=== PATIENT | female | born 1950 | race Caucasian/White ===

== ENCOUNTER → 2016-12-14 | Outpatient (CLI) | payer BC, OTHER ==
[~2016-12-14] VITALS: Ht 157.5 cm; Wt 70.8 kg
[~2016-12-14] MED LIST: ASPIR 8181 MG PO; FISH OIL 1,001000 M2 PO; HYDROCODON-ACE1 EAC5 PO; HYDROCODONE-AP1 EAC6 PO; METFORMIN HCL500 MG PO; NEURONTIN 300300 M1 PO; VALSARTAN-HCTZ1 EAC3 PO; ZOCOR20 MG PO; ZYRTEC10 M4 PO
--- NOTE | ~2016-12-14 | HPC ---
[facility] [address] [place] [address] PAIN MANAGEMENT CONSULTATION Name: CRISPIN ZAMORA Room #: REG [facility].#: [id number] Admission: 12/14/16 Attend Phys: Marcel Collins MD Discharge: Date of : 52 Report #: [id number] THIS REPORT FOR: //name// CC: Pamela Collins DATE OF SERVICE: 12/14/2016 DATE OF SERVICE: 12/14/2016 REASON FOR CONSULTATION: Cervical radiculopathy. HISTORY OF PRESENT ILLNESS: The patient is Reginaldo Zamora's and she is here today for cervical radiculopathy. I have been taking care of her for several years and he requested that she be evaluated in our clinic for her injection. She began experiencing pain in her upper back radiating into her right arm and into the right hand in 09/2017. Initial treatments included 2 prednisone Dosepak with minimal improvement and she was seen twice in physical therapy also without significant improvement. She was given gabapentin for the neuropathic symptoms at bedtime 300 mg and hydrocodone. She received only about 30 tablets, but was taking far more and used up her medication rapidly. The medication was helpful for pain when it was severe. She describes her pain as continuous, steady, constant, aching, crushing, pain intensity is a 9/10. It is constant and does not go away with simple neck manoeuvres or positioning. MEDICATIONS: Simvastatin, valsartan, hydrochlorothiazide, metformin, Zyrtec. ALLERGIES: PENICILLIN. PAST MEDICAL HISTORY: Positive for hypertension and over the last year and a half, she has been told that she is prediabetic. She is unsure of her A1c numbers. We discussed the role of cortisone including prednisone and triamcinolone use for epidural injections have in the elevation of blood pressure. PAST SURGICAL HISTORY: Diverticulitis in 2006. 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 She denies the use of any tobacco or alcohol. She has no history of drug addiction or abuse. There is no family history of drug addiction. [facility] [address] [place] [address] PAIN MANAGEMENT CONSULTATION Name: CRISPIN ZAMORA Room #: REG [facility]#: [id number] Admission: 12/14/16 Attend Phys: Marcel Collins MD Discharge: Date of : 52 Report #: [id number] REVIEW OF SYSTEMS: Completed by the patient: CONSTITUTIONAL: She describes headaches and blurred vision at times. CARDIOVASCULAR: Negative. RESPIRATORY: Negative. GASTROINTESTINAL: Negative. GENITOURINARY: Positive for nocturia. MUSCULOSKELETAL: Positive for numbness, tingling and weakness in the right arm. PSYCHIATRIC: Reported negative. ENDOCRINE: Positive for diabetes. PHYSICAL EXAMINATION: GENERAL: She is a pleasant, 66-year-old, alert and oriented. VITAL SIGNS: Her blood pressure on admission today is 102/76, heart rate 95, respirations 16. BMI is 28.5. HEENT: Normal. Pupils are equal, round, reactive to light. EOMs are intact. NECK: Reveals some restrictions in lateral tilt. Left lateral tilt exacerbates symptoms into the right arm. Neck flexion, extension performed to normal range of motion with only mild reproductions of symptoms of radiculopathy. MUSCULOSKELETAL: Deltoid, biceps, triceps strength are all judged to be equal. 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 Sensation is generally diminished throughout the hand to light touch in a nondermatomal distribution. She has tenderness across the back. Reflexes in lower extremity are brisk, 3+ suggesting some underlying hyperreflexia. This can be a sign of spinal stenosis. MRI scan is reviewed dated 11/24/2016. There is generalized degenerative facet arthropathy at multiple levels consistent with age. There is what is described as mild central canal stenosis at C5-C6 with severe bilateral neural foraminal stenosis. The greatest degree of neural foraminal stenosis is there as well as the C7-T1 where there is also severe bilateral neural foraminal stenosis. Midline stenosis is described as mild at that location as well related to generalized disk bulging. IMPRESSION: Cervical radiculopathy with bilateral neural foraminal stenosis at C5-C6 and C7-T1 with right-sided radicular symptoms. RECOMMENDATIONS: Cervical epidural steroid injection under fluoroscopic guidance. We discussed treatment algorithm. She has been treated very properly to this stage and it is good timing to proceed forward with an epidural injection. Response will be judged on done both meaningful pain symptom improvement as well as duration of response. A second injection may be indicated in 3 weeks to 1 month. We will schedule followup. [address] [address] PAIN MANAGEMENT CONSULTATION Name: SERAESAU Room #: REG [facility] Eleni.#: [id number] Admission: 12/14/16 Attend Phys: Marcel Collins MD Discharge: Date of : 52 Report #: [id number] I also discussed further steps down the algorithm, which would include, if symptoms persist, surgical consultation for consideration of an ACDF. Plenty of time was allowed for discussion and questioning. Risks and benefits of the procedure were explained prior to taking her articularly to the treatment room. PROCEDURE: She was placed prone, skin prepped with ChloraPrep. Skin anesthetized over C6-C7. Using biplanar fluoroscopic views, I carefully advanced the needle into the epidural space using loss of resistance technique. Needle was slightly to the right of midline. A 0.5 mL of Omnipaque was injected with excellent epidurogram achieved and it was then followed by 3 mL of 0.5% lidocaine mixed with 80 mg of triamcinolone. She was taken to recovery room for observation. Instructions for postop management were given. I provided her with a prescription for hydrocodone 5/325, #60 with strict instructions for safeguarding the medication. She should not share her medication. She should receive medication now only from the pain physician and not from or more than 1 provider. If long-term opioids are required, she will need to sign an opioid agreement. We discussed the CDC guidelines, the opioid crisis in the [place] as well as addiction issues. Her role in maintaining these medications safely was discussed. Followup visit in 3-4 weeks. By: [id number] Marcel Collins MD /nt
[2016-12-14 10:55] VITALS: BP 102/76
== END | disposition home or self-care (01) ==
LOC: PAIN 06:34
DX: M54.12 Radiculopathy, cervical region (principal); M48.02 Spinal stenosis, cervical region; I10 Essential (primary) hypertension; Z79.899 Other long term (current) drug therapy; Z88.0 Allergy status to penicillin; Z98.890 Other specified postprocedural states; Z79.82 Long term (current) use of aspirin

== ENCOUNTER → 2017-09-10 | Outpatient (CLI) | payer BC, OTHER ==
[~2017-09-10] VITALS: Ht 157.5 cm; Wt 73.5 kg
--- NOTE | ~2017-09-10 | HPC ---
[facility] [address] [place] [address] PAIN MANAGEMENT CONSULTATION Name: CRISPIN ZAMORA Room #: REG Leroy Mendez.#: [id number] Admission: 09/10/17 Attend Phys: Marcel Collins MD Discharge: Date of : 52 Report #: [id number] THIS REPORT FOR: //name// CC: Pamela Collins DATE OF SERVICE: 09/10/2017 Followup visit for cervical radiculopathy. I last saw the patient in 01/2017. She received nearly 6 months of excellent pain relief following a single cervical epidural injection. She is here today for another injection. Pain is beginning to return. She describes it as an aching sensation. It radiates into her arms, right is worse than left. Some of the pain radiates into the axilla as well. She complains of some numbness and tingling as well. Pain score is a 5/10. She is not a fall risk. She has no myelopathy. She does not smoke. She does not drink alcohol. She has maintained her weight fairly well with a BMI of 29.6. She does take opioid medication hydrocodone every 8 hours as needed prescribed by primary care. PHYSICAL EXAMINATION: Blood pressure 118/75, heart rate 87, respirations 14, BMI 29.6. Cervical range of motion is performed without significant increase in pain. She is uncomfortable; however, with cervicalgia with neck extension and localized tenderness. Biceps, triceps and nursing project coordinator strengths are 2+ and symmetrical. Sensation is intact. Deep tendon reflexes are 2+ biceps, triceps and brachioradialis. Reflexes in lower extremities are 3+ and she is slightly hyperreflexic possibly suggesting some slight cord impingement. Gait is normal. Some tenderness of the right hip with internal and external rotation noted. IMPRESSION: 1. Cervicalgia with radiculopathy on the right. MRI evidence of central canal stenosis at C5-C6 and C7-T1. 2. Arthropathy with pain radiating into the right hip. 3. Osteoarthritis. RECOMMENDATIONS: Cervical epidural injection under fluoroscopic guidance. DESCRIPTION OF PROCEDURE: The patient was taken to fluoroscopic suite, placed prone, skin prepped with ChloraPrep. Skin anesthetized over C6-C7. A 20-gauge Tuohy epidural needle advanced first attempt in the epidural space with loss of resistance technique. There was no blood or CSF aspirated. A 1 mL of Omnipaque injected with good spread of dye observed in the epidural space followed by 3 mL of 0.5% lidocaine mixed with 80 mg triamcinolone. She tolerated the procedure well and was observed for 45 minutes and discharged. [address] [address] PAIN MANAGEMENT CONSULTATION Name: CRISPIN ZAMORA Room #: REG [facility] Blue#: [id number] Admission: 09/10/17 Attend Phys: Marcel Collins MD Discharge: Date of : 52 Report #: [id number] Followup visit planned in the pain clinic on an as needed basis. By: [id number] Marcel Collins MD /carley
[2017-09-10 12:51] VITALS: BP 118/75
== END | disposition home or self-care (01) ==
LOC: PAIN 06:42
DX: M54.12 Radiculopathy, cervical region (principal); M48.02 Spinal stenosis, cervical region; M46.92 Unspecified inflammatory spondylopathy, cervical region; M19.90 Unspecified osteoarthritis, unspecified site; G89.29 Other chronic pain; Z79.891 Long term (current) use of opiate analgesic; Z88.0 Allergy status to penicillin; Z79.82 Long term (current) use of aspirin; Z79.899 Other long term (current) drug therapy

== ENCOUNTER → 2018-07-04 | Outpatient (CLI) | payer BC, OTHER ==
[~2018-07-04] VITALS: Ht 157.5 cm; Wt 73.0 kg
--- NOTE | ~2018-07-04 | HPC ---
[facility] [address] [place] [address] PAIN MANAGEMENT CONSULTATION Name: CRISPIN ZAMORA Room #: REG [facility] Claudia.#: [id number] Admission: 07/04/18 ������������������ Attend Phys: Marcel Collins MD Discharge: ������������������ Date of : 52 Report #: [id number] THIS REPORT FOR: //name// CC: Pamela Collins DATE OF SERVICE: 07/04/2018 CHIEF COMPLAINT: Followup visit for cervical radiculopathy. The patient was seen in 2018, received 2 cervical epidural injections. The injections were performed about 6 weeks apart. Following the second injection, she underwent 3 months of excellent pain relief that was sustained. She is grateful for that intermediate designer relief and is here today to receive another injection and hopefully she believes to receive a second injection in another month. We discussed our philosophy of providing one injection at a time if her pain relief is substantial and dramatic than a single injection would be all that is necessary. She describes her pain today as pain in the neck radiating mostly into the right arm, although she has pain radiating into both right and left. Pain is most intense across the shoulders. She has occasional C6 radiating pain when she has been using her arms extensively. I provided with 30 hydrocodone tablets. That lasted her 9 months since she obviously very rarely uses hydrocodone, but is grateful for it when the pain is severe. She has an MRI scan that shows a posterior disk osteophyte complex at C5-C6 causing mild central stenosis and severe bilateral neural foraminal stenosis. PQRS review is positive for a history of osteoarthritis involving the neck and additional joints including shoulders and knees. PHYSICAL EXAMINATION: She is 5 feet 2 inches, 161 pounds with a BMI of 29.4. Her pain intensity is 7/10. She is not a fall risk. She is on no blood thinners. She has a history of hypertension. She is under treatment. MEDICATIONS: All medications are reviewed and reconciled and include hydrocodone rarely taken, aspirin, cetirizine, metformin, valsartan/hydrochlorothiazide, and simvastatin. ALLERGIES: PENICILLIN. She had signed an opioid agreement today even with her low dose and we completed an opioid risk tool that shows that she is at low risk for addiction. She [facility] [address] [place] [address] PAIN MANAGEMENT CONSULTATION Name: CRISPIN ZAMORA Room #: REG [facility].#: [id number] Admission: 07/04/18 ������������������ Attend Phys: Marcel Collins MD Discharge: ������������������ Date of : 52 Report #: [id number] denies use of tobacco and alcohol. PHYSICAL EXAMINATION: VITAL SIGNS: Blood pressure 103/63, heart rate is 88, respirations 15, O2 sat 97. EXTREMITIES: She has neck pain with cervical flexion, extension and rotation. Extension reproduces pain that radiates into the shoulders and a bit down into the right arm. Strength is normal. Sensation is normal. Deep tendon reflexes in the upper and lower extremity are 2+ to 3+. There is some slight hyperreflexia, but not severe. IMPRESSION: Cervical radiculopathy, C5-C6. RECOMMENDATION: Repeat cervical epidural injection today under fluoroscopic guidance. PROCEDURE: The patient was taken to fluoroscopic suite for the treatment. She was placed prone, skin prepped with ChloraPrep. Skin anesthetized over the C6-C7 interspace and a 20-gauge Tuohy epidural needle advanced on the first attempt in the epidural space with loss of resistance. There was no blood or CSF aspirated. 1 mL of Omnipaque injected. Good spread of dye observed in the epidural space in a cephalad and caudad direction was followed by 3 mL of 0.5% lidocaine with 80 mg of triamcinolone. She tolerated the procedure well and she was observed in recovery room for about 30 minutes and discharged with a reduction in pain and followup visit planned in 4-6 weeks' time. ��������������������������������������������� ���������������������������������������� By: ��������������������������������������������� [id number] Marcel Collins MD /nt
[2018-07-04 09:44] VITALS: BP 103/63
--- NOTE | 2018-07-04 09:46 | NUR ---
Pain Clinic Assessment: 1. History of Osteoarthritis: History of Rheumatoid Arthritis: 2. Height: 5 ft. 2 in. 157.5 cm. Weight: 161.0 lb. oz. 73.029 kg. Patient's BMI: 29.4 3. Vital Signs: BP: 103/63 Pulse: 88 Resp: 15 Temp: 02 Sat: 97 ECG Mon: 4. Pain Intensity: 7 5. Fall Risk: Dizziness: N Needs help standing or walking: N Fallen in the last 3 months: N Fall risk comments: 6. Patient on Blood Thinner: None 7. History of Hypertension: Y 8. Opioid Therapy greater than 6 weeks: Y Opiate Contract Signed: 07/04/18 9. Risk Assessment Tool Provided: LOW 10. Functional Assessment Tool: 11. Recreational Drug Use: Never Drug Type: Tobacco Use: Never Smoker Tobacco Type: Amount or Packs/day: How Many Years: Alcohol Use: No Frequency: Quant:
== END | disposition home or self-care (01) ==
LOC: PAIN 06:43
DX: M54.12 Radiculopathy, cervical region (principal); G89.29 Other chronic pain; I10 Essential (primary) hypertension; M19.90 Unspecified osteoarthritis, unspecified site; Z79.891 Long term (current) use of opiate analgesic; Z98.890 Other specified postprocedural states; Z79.899 Other long term (current) drug therapy; Z88.0 Allergy status to penicillin; Z79.82 Long term (current) use of aspirin

== ENCOUNTER → 2018-08-15 | Outpatient (CLI) | payer BC, OTHER ==
[~2018-08-15] VITALS: Ht 157.5 cm; Wt 73.9 kg
[2018-08-15 09:40] VITALS: BP 103/67
--- NOTE | 2018-08-15 09:45 | NUR ---
Pain Clinic Assessment: 1. History of Osteoarthritis: right hip neck right forefinger toes History of Rheumatoid Arthritis: Not Applicable 2. Height: 5 ft. 2 in. 157.5 cm. Weight: 163.0 lb. oz. 73.936 kg. Patient's BMI: 29.8 3. Vital Signs: BP: 103/67 Pulse: 97 Resp: 16 Temp: 02 Sat: 95 ECG Mon: 4. Pain Intensity: 5 5. Fall Risk: Dizziness: N Needs help standing or walking: N Fallen in the last 3 months: N Fall risk comments: 6. Patient on Blood Thinner: None 7. History of Hypertension: Y 8. Opioid Therapy greater than 6 weeks: Y Opiate Contract Signed: 07/04/18 9. Risk Assessment Tool Provided: LOW-1 10. Functional Assessment Tool: 11. Recreational Drug Use: Never Drug Type: Tobacco Use: Never Smoker Tobacco Type: Amount or Packs/day: How Many Years: Alcohol Use: No Frequency: Quant:
--- NOTE | 2018-08-19 18:13 | HPC ---
[facility] [place] [address] PAIN MANAGEMENT CONSULTATION Name: CRISPIN ZAMORA Room #: REG [facility] Taylor.#: [id number] Admission: 08/15/18 ������������������ Attend Phys: Marcel Collins MD Discharge: ������������������ Date of : 52 Report #: [id number] THIS REPORT FOR: //name// CC: Pamela Collins DATE OF SERVICE: 08/15/2018 Followup visit for cervical radiculopathy. The patient returns to pain clinic today and would like another cervical epidural injection. She was treated very successfully on 07/04/2018 with significant relief of her cervical radiculopathy. Pain is mostly in her neck, it radiates into the right arm more so than the left, but both arms are involved. Today, she says her pain score is a 5/10 and increasing. In the past, we have treated with 2 epidural injections over the course of 30-60 day period and following that she has had extended relief for up to 6-9 months. I plan to go forward with that treatment once again today. MEDICATIONS: Reviewed and reconciled. Aspirin, metformin, valsartan/hydrochlorothiazide, simvastatin. ALLERGIES: PENICILLIN. MRI review shows mild central stenosis at C5-C6 and at C7-T1. PHYSICAL EXAMINATION: VITAL SIGNS: Blood pressure 103/67, heart rate 97, respirations 16. BMI 29.8. MUSCULOSKELETAL: Cervical range of motion is limited in neck extension, which reproduces her symptoms. IMPRESSION: Cervical radiculopathy, C5-C6. RECOMMENDATIONS: Repeat cervical epidural injection under fluoroscopic guidance. PROCEDURE: She was taken to fluoroscopic suite, placed prone, skin prepped with ChloraPrep. Skin anesthetized over C6-C7. A 20-gauge Tuohy epidural needle advanced first attempt in the epidural space with loss of resistance technique. There was no blood or CSF aspirated. A 1 mL of Omnipaque was injected. Good spread of dye observed into the epidural space followed by 3 mL of 0.5% lidocaine mixed with 80 mg of triamcinolone. She tolerated the procedure well and was observed for 45 minutes and discharged. [facility] [address] [place] [address] PAIN MANAGEMENT CONSULTATION Name: CRISPIN ZAMORA GRACE Room #: REG [facility] Mirza#: [id number] Admission: 08/15/18 ������������������ Attend Phys: Marcel Collins MD Discharge: ������������������ Date of : 52 Report #: [id number] Followup visit planned as needed. ��������������������������������������������� <ELECTRONICALLY SIGNED> ���������������������������������������� By: Marcel Collins MD ��������������������������������������������� 08/19/18 1813 [id number] 1530 Marcel Collins MD /nt
== END | disposition home or self-care (01) ==
LOC: PAIN 06:42
DX: M54.12 Radiculopathy, cervical region (principal); G89.29 Other chronic pain; Z98.890 Other specified postprocedural states; Z88.0 Allergy status to penicillin; Z79.899 Other long term (current) drug therapy; Z79.82 Long term (current) use of aspirin; Z79.891 Long term (current) use of opiate analgesic

== ENCOUNTER → 2019-02-20 | Outpatient (CLI) | payer BC, OTHER ==
[~2019-02-20] VITALS: Ht 157.5 cm; Wt 71.8 kg
--- NOTE | ~2019-02-20 | HPC ---
[facility] [address] [employer] [place] [address] PAIN MANAGEMENT CONSULTATION Name: CRISPIN ZAMORA Room #: REG [facility] Eleni.#: [id number] Admission: 02/20/19 Attend Phys: Marcel Collins MD Discharge: Date of : 52 Report #: [id number] THIS REPORT FOR: //name// CC: Pamela Collins DATE OF SERVICE: 02/20/2019 Followup visit for cervical radiculopathy. The patient is here today requesting a cervical epidural injection. The record will reflect that she has been a longstanding patient of our clinic and has responded very nicely to cervical epidural injections intermittently since 11/2016. She has had no more than 2-3 injections per year. This would be her third injection in 2019. She reports that each time she receives an injection she receives pain relief. This of a substantial nature. The duration of response is measured in months. Today, she returns to clinic reporting her pain score is elevated once again in the range of 6-7/10. Conservative measures have not helped. The pain is in her neck, bilateral shoulders, bilateral arms, left worse than right. She has numbness and tingling and heavy sensation in her left arm. She gets relief when she lies down. She also uses medication and also tries heat and cold. MRI reviewed from 2016 shows that she has central spinal canal stenosis at C5-C6, generalized disk bulging at C6-C7 as well as the C7-T1. There is severe bilateral neural foraminal stenosis at C7-T1. PHYSICAL EXAMINATION: GENERAL: Pleasant, alert and oriented. She is a 68-year-old female. She has diffuse osteoarthritis. She is 5 feet 2 with a BMI of 28.9. VITAL SIGNS: Blood pressure is 129/74, heart rate 85, respirations 16. Pain score 6-7/10. She moves independently from sitting to standing position, walks without antalgic gait. NECK: Examination of the neck reveals tenderness in the occiput and also down through the shoulders into the trapezius. She has good range of motion with pain in neck extension that radiates into the shoulders and arms. Strength is adequate throughout the upper extremities with no focal weakness. Sensation is normal today. Deep tendon reflexes are 1 to 2+ at the biceps, triceps and 2+ at the brachioradialis. She is a bit hyperreflexic bilaterally at the patellar tendon with 3+ reflexes noted bilaterally. 2+ ankle jerk reflexes bilaterally. Sensation is normal. She has a negative Sher's. IMPRESSION: Cervical radiculopathy related to cervical stenosis and neural foraminal narrowing. [address] [address] PAIN MANAGEMENT CONSULTATION Name: SERACRISPIN STUART Room #: REG [facility] Blue#: [id number] Admission: 02/20/19 Attend Phys: Marcel Collins MD Discharge: Date of : 52 Report #: [id number] RECOMMENDATIONS: Cervical epidural injection under fluoroscopic guidance. PROCEDURE: She was taken to fluoroscopic suite. She was placed prone, skin prepped with ChloraPrep. Skin was anesthetized over C7-T1. A 20-gauge Tuohy epidural needle was advanced into the epidural space using biplanar fluoroscopic views. A 0.25 mL of Omnipaque was injected and excellent epidurogram achieved. This was then followed by 3 mL of 0.5% lidocaine mixed with 80 mg of triamcinolone. She tolerated the procedure well. She was observed for 45 minutes and discharged. There were no complications. Followup visit planned as needed. By: [id number] Marcel Collins MD /nt
[2019-02-20 14:36] VITALS: BP 129/74
--- NOTE | 2019-02-20 14:54 | NUR ---
Pain Clinic Assessment: 1. History of Osteoarthritis: NECK RIGHT HIP FINGERS TOES History of Rheumatoid Arthritis: Not Applicable 2. Height: 5 ft. 2 in. 157.5 cm. Weight: 158.2 lb. oz. 71.759 kg. Patient's BMI: 28.9 3. Vital Signs: BP: 129/74 Pulse: 85 Resp: 16 Temp: 02 Sat: 99 ECG Mon: 4. Pain Intensity: 6-7 5. Fall Risk: Dizziness: N Needs help standing or walking: N Fallen in the last 3 months: N Fall risk comments: 6. Patient on Blood Thinner: None 7. History of Hypertension: Y 8. Opioid Therapy greater than 6 weeks: Y Opiate Contract Signed: 07/04/18 9. Risk Assessment Tool Provided: LOW RISK 0/3 10. Functional Assessment Tool: 11. Recreational Drug Use: Never Drug Type: Tobacco Use: Never Smoker Tobacco Type: Amount or Packs/day: How Many Years: Alcohol Use: No Frequency: Quant:
== END | disposition home or self-care (01) ==
LOC: PAIN 07:00
DX: M54.12 Radiculopathy, cervical region (principal); M48.02 Spinal stenosis, cervical region; M99.71 Connective tissue and disc stenosis of intervertebral foramina of cervical region; Z88.0 Allergy status to penicillin; Z79.82 Long term (current) use of aspirin; Z79.899 Other long term (current) drug therapy

== ENCOUNTER → 2020-02-02 | Outpatient (CLI) | payer BC, OTHER ==
[~2020-02-02] VITALS: Ht 160 cm; Wt 69.2 kg
[~2020-02-02] MED LIST changes: +CRESTOR10 MG PO
[2020-02-02 10:55] VITALS: BP 152/81
--- NOTE | 2020-02-02 11:17 | NUR ---
Pain Clinic Assessment: 1. History of Osteoarthritis: NECK RIGHT HIP FINGERS TOES History of Rheumatoid Arthritis: Not Applicable 2. Height: 5 ft. 3 in. 160.0 cm. Weight: 152.6 lb. oz. 69.219 kg. Patient's BMI: 27.0 3. Vital Signs: BP: 152/81 Pulse: 102 Resp: 16 Temp: 02 Sat: 100 ECG Mon: 4. Pain Intensity: 6 5. Fall Risk: Dizziness: N Needs help standing or walking: N Fallen in the last 3 months: N Fall risk comments: 6. Patient on Blood Thinner: None 7. History of Hypertension: Y 8. Opioid Therapy greater than 6 weeks: Y Opiate Contract Signed: 07/04/18 9. Risk Assessment Tool Provided: LOW RISK 0/3 10. Functional Assessment Tool: 5070 11. Recreational Drug Use: Never Drug Type: Tobacco Use: Never Smoker Tobacco Type: Amount or Packs/day: How Many Years: Alcohol Use: No Frequency: Quant:
== END | disposition home or self-care (01) ==
LOC: PAIN 06:55
PROVIDERS: ATTEND Anesthesiology Pain Medicine
DX: M54.12 Radiculopathy, cervical region (principal); G89.29 Other chronic pain; I10 Essential (primary) hypertension; M19.90 Unspecified osteoarthritis, unspecified site; Z98.890 Other specified postprocedural states; Z79.899 Other long term (current) drug therapy; Z88.0 Allergy status to penicillin

== ENCOUNTER → 2021-01-24 | Outpatient (CLI) | payer BC, OTHER ==
[~2021-01-24] VITALS: Ht 160 cm; Wt 67.9 kg
[~2021-01-24] MED LIST changes: +ALLEGRA-D 12 H1 EAC1 PO; +PROTONIX40 M2 PO
[2021-01-24 09:46] VITALS: BP 129/81
--- NOTE | 2021-01-24 09:54 | NUR ---
Pain Clinic Assessment: 1. History of Osteoarthritis: NECK RIGHT HIP FINGERS TOES History of Rheumatoid Arthritis: Not Applicable 2. Height: 5 ft. 3 in. 160.0 cm. Weight: 149.8 lb. oz. 67.949 kg. Patient's BMI: 26.5 3. Vital Signs: BP: 129/81 Pulse: 93 Resp: 16 Temp: 02 Sat: 100 ECG Mon: 4. Pain Intensity: 7 5. Fall Risk: Dizziness: N Needs help standing or walking: N Fallen in the last 3 months: N Fall risk comments: 6. Patient on Blood Thinner: None 7. History of Hypertension: Y 8. Opioid Therapy greater than 6 weeks: Y Opiate Contract Signed: 07/04/18 9. Risk Assessment Tool Provided: LOW RISK 0/3 10. Functional Assessment Tool: 50/70 11. Recreational Drug Use: Never Drug Type: Tobacco Use: Never Smoker Tobacco Type: Amount or Packs/day: How Many Years: Alcohol Use: No Frequency: Quant:
== END | disposition home or self-care (01) ==
LOC: PAIN 07:05
PROVIDERS: ATTEND Anesthesiology Pain Medicine
DX: M50.123 Cervical disc disorder at C6-C7 level with radiculopathy (principal); M48.02 Spinal stenosis, cervical region; G89.29 Other chronic pain; I10 Essential (primary) hypertension; M19.90 Unspecified osteoarthritis, unspecified site; Z98.890 Other specified postprocedural states; Z79.899 Other long term (current) drug therapy; Z88.0 Allergy status to penicillin